=== PATIENT | male | born 1980 | race Two or more races ===

== ENCOUNTER 2019-01-07 01:18 | Emergency (ER) | payer SELFPAY ==
[~2019-01-07] VITALS: Ht 182.9 cm; Wt 99.8 kg
--- NOTE | 2019-01-07 01:28 | NUR ---
"BIBFAMILY C/O LLQ PAIN X1 DAY. -DYSURIA, -HEMATURIA, -FLANK PAIN HX KIDNEY STONES. TOOK NORCO 5/325 MG X2HR [employer] HOST/HOSTESS" pt [id number], -sob, nad noted, vss, pending md bahena
[2019-01-07] MEDS ORDERED: KETOROLAC TROMETHAMINE 15 MG/ML VIAL ONE (02:07)
[2019-01-07 02:11] LABS: APPEARANCE,URINE Cloudy (CLEAR); BILIRUBIN,URINE Negative (NEGATIVE); BLOOD, URINE Large Ery/uL (NEGATIVE); COLOR,URINE Dark (YELLOW); KETONES,URINE Negative (NEGATIVE); LEUKOCYTE ESTERASE ,URINE Negative (NEGATIVE); NITRITE, URINE Negative (NEGATIVE); PH,URINE 5.5 (5.0-8.0); PROTEIN,URINE Trace mg/dl (NEGATIVE); UGLUCOSE Negative (NEGATIVE); UROBILINOGEN,URINE 0.2 EU/dL (0.2)
[2019-01-07 02:17] LABS: BASOPHILS % (AUTO) 0.3 % (0.0-2.0); EOSINOPHILS % (AUTO) 0.6 % (0.0-6.0); HEMATOCRIT 46 % (39-51); HEMOGLOBIN 15.3 g/dL (13.5-17.5); LYMPHOCYTES # (AUTO) 1.8 /CMM (0.8-4.8); LYMPHOCYTES % (AUTO) 17.3 % (20.0-44.0); MEAN CORPUSCULAR HGB CONC 33 g/dl (31.0-36.0); MEAN CORPUSCULAR VOLUME 89 fL (80-96); MONOCYTES # (AUTO) 0.5 /CMM (0.1-1.30); MONOCYTES % (AUTO) 5.3 % (2.0-12.0); NEUTROPHILS # (AUTO) 7.8 /CMM (1.8-8.9); NEUTROPHILS % (AUTO) 76.5 % (43.0-81.0); PLATELET COUNT (AUTO) 197 /CMM (150-450); WHITE BLOOD COUNT (AUTO) 10.2 K/uL (4.3-11.0)
[2019-01-07 02:27] LABS: CREATININE 1.4 mg/dL (0.6-1.3)
[2019-01-07] MEDS ORDERED: KETOROLAC TROMETHAMINE INJ 30 MG/ML VIAL IV ONE (02:30)
[2019-01-07] MEDS ORDERED: IV NS 0.9% 250 ML IV ONE (02:42)
[2019-01-07] MEDS ORDERED: IOHEXOL-300 100 ML VIAL IV ONE (02:42)
--- NOTE | 2019-01-07 02:56 | NUR ---
PT RETURN FROM CT SCAN.
[2019-01-07] MEDS ORDERED: IV NS 0.9% 1,000 ML IV PRN (03:00)
[2019-01-07 03:36] LABS: BACTERIA,URINE None seen /HPF (None Seen); RBC,URINE 21-50 /HPF (0-2); SQUAMOUS EPITHELIAL CELL,UR Moderate /HPF (None Seen); WBC,URINE 0-2 /HPF (0-3)
[2019-01-07] MEDS ORDERED: KETOROLAC TROMETHAMINE INJ 30 MG/ML VIAL ONE (04:13)
[2019-01-07] MEDS ORDERED: KETOROLAC TROMETHAMINE INJ 60 MG/2 ML VIAL IM ONE (04:30)
[2019-01-07 05:03] VITALS: BP 123/72
== END 2019-01-07 04:19 | disposition home or self-care (01) ==
LOC: ER 01:20
DX: N20.0 Calculus of kidney (principal)
CPT/HCPCS: 36415; 74177; 80048; 81001; 85025; 96374; 99284; J1885 ×2; J7030; J7050; Q9967; 81000-TC